=== PATIENT | male | born 1945 | race Two or more races ===

== ENCOUNTER 2025-05-08 12:43 | Emergency (ER) | payer OTHER, BC ==
[2025-05-08 12:56] VITALS: BP 139/79; PULSE 69; RESP 18; TEMP 97.9; BMI 26.6
[2025-05-08] MEDS ORDERED: ACETAMINOPHEN 500 MG TABLET (FP) ONE (13:36)
[2025-05-08] MEDS ORDERED: LIDOCAINE 4% PATCH TP ONE (13:36)
[2025-05-08] MEDS: LIDOCAINE 4% PATCH TP ONE (13:41)
[2025-05-08] MEDS: ACETAMINOPHEN 500 MG TABLET (FP) PO ONE (13:41)
== END 2025-05-08 14:50 | disposition home or self-care (01) ==
LOC: JERFT 12:43
DX: M54.50 Low back pain, unspecified (principal); M25.561 Pain in right knee; M25.562 Pain in left knee; V43.52XA Car driver injured in collision with other type car in traffic accident, initial encounter; Y92.410 Unspecified street and highway as the place of occurrence of the external cause
CPT/HCPCS: 73560-TC-LT-FY; 73560-TC-RT-FY; 99284-25